=== PATIENT | female | born 1985 | race Caucasian/White ===

== ENCOUNTER → 2017-11-30 11:04 | Outpatient (CLI) | payer BC, SELFPAY ==
[2017-11-30 14:04] LABS: Absolute Lymphocyte Count 1.63 X10^3/ul (0.83-4.51); Absolute Neutrophil Count 6.7 X10^3/uL (2.0-7.7); Basophil# 0.02 X10^3/uL; Basophil% 0.2 % (0-1); Eosinophil# 0.01 X10^3/uL; Eosinophils% 0.1 % (0-5); Hematocrit 38.8 % (37-47); Hemoglobin 12.7 g/dl (12.0-15.0); Lymphocyte # 1.63 X10^3/ul (4.0); Lymphocyte % 18.7 % (19-41); Mean Corp Hgb Conc 32.7 g/gl (32-36); Mean Corpuscular Hgb 29.9 pg (27.0-32.0); Mean Corpuscular Volume 91.3 fL (81-99); Mean Platelet Vol. 10.2 fl (6.2-12.0); Monocyte# 0.36 X10^3/uL; Monocyte% 4.1 % (0-10); Neutrophil # 6.67 X10^3/uL (2.7-7.7); Neutrophil % 76.8 % (47-70); Platelet Count 268 K/mm3 (150-450); RBC Distribution Width CV 12.2 % (11.6-14.6); RBC Distribution Width SD 41.1 fl (35.1-43.9); Red Blood Count 4.25 M/mm3 (4.2-5.4); White Blood Count 8.7 K/mm3 (4.4-11.0)
[2017-11-30 14:06] LABS: POSITIVE COUNT NO; POSITIVE DIFFERENTIAL NO; POSITIVE MORPHOLOGY NO
[2017-11-30 14:15] LABS: Vitamin D,25 Hydroxy 13.6 ng/mL (29.95-100.01)
[2017-11-30 14:21] LABS: ALB/GLOB Ratio 1.1 RATIO (0.9-2.4); AST(SGOT) 11 U/L (15-37); Alanine Aminotransfer ALT/SGPT 17 U/L (13-56); Alkaline Phosphatase 43 U/L (45-117); Anion Gap 10 (5-15); BUN 9 mg/dL (7-18); BUN/Creat Ratio 11.7 RATIO (10-20); Calcium,Total 8.9 mg/dL (8.5-10.1); Chloride 107 mmol/L (98-107); Creatinine, Serum 0.77 mg/dL (0.55-1.02); EST Glomerular Filtration Rate 92 mL/min (>60); Est Glom Filt Rate - Afr Amer 112 mL/min (>60); Ferritin 21 ng/mL (8-252); Globulin 3.5 g/dL (2.2-4.2); Glucose 77 mg/dL (74-106); Potassium 3.5 mmol/L (3.5-5.1); Protein, Total 7.5 g/dL (6.4-8.2); Sodium Level 143 mmol/L (136-145); Thyroid Stim Hormone (TSH) 2.35 uIU/mL (0.358-3.74)
== END ==
PROVIDERS: Family Provider Family Medicine; PCP Family Medicine; Referring Provider Family Medicine; Visit Provider Family Medicine
DX: R53.81 Other malaise (principal); R53.83 Other fatigue
CPT/HCPCS: 36415; 80053; 82306; 82728; 84443; 85025

== ENCOUNTER → 2017-12-15 12:50 | Outpatient (CLI) | payer BC, SELFPAY ==
[2017-12-21 14:39] LABS: HPV Reflexed? NOT INDICATED
== END ==
PROVIDERS: Visit Provider Obstetrics & Gynecology
DX: Z12.4 Encounter for screening for malignant neoplasm of cervix (principal)
CPT/HCPCS: 88175; G0145

== ENCOUNTER → 2018-03-29 10:53 | Outpatient (CLI) | payer BC, SELFPAY ==
[2018-03-29 11:58] LABS: Absolute Lymphocyte Count 0.85 X10^3/ul (0.83-4.51); Absolute Neutrophil Count 4.1 X10^3/uL (2.0-7.7); Basophil# 0.01 X10^3/uL; Basophil% 0.2 % (0-1); Eosinophil# 0.01 X10^3/uL; Eosinophils% 0.2 % (0-5); Hematocrit 40.8 % (37-47); Hemoglobin 13.3 g/dl (12.0-15.0); Lymphocyte # 0.85 X10^3/ul (4.0); Lymphocyte % 15.2 % (19-41); Mean Corp Hgb Conc 32.6 g/gl (32-36); Mean Corpuscular Hgb 29.8 pg (27.0-32.0); Mean Corpuscular Volume 91.5 fL (81-99); Mean Platelet Vol. 10.2 fl (6.2-12.0); Monocyte# 0.65 X10^3/uL; Monocyte% 11.6 % (0-10); Neutrophil # 4.05 X10^3/uL (2.7-7.7); Neutrophil % 72.6 % (47-70); Platelet Count 230 K/mm3 (150-450); RBC Distribution Width CV 12.4 % (11.6-14.6); RBC Distribution Width SD 41.5 fl (35.1-43.9); Red Blood Count 4.46 M/mm3 (4.2-5.4); White Blood Count 5.6 K/mm3 (4.4-11.0)
[2018-03-29 12:01] LABS: POSITIVE COUNT NO; POSITIVE DIFFERENTIAL NO; POSITIVE MORPHOLOGY NO
[2018-03-29 12:11] LABS: Vitamin D,25 Hydroxy 24.9 ng/mL (29.95-100.01)
[2018-03-29 12:31] LABS: AST(SGOT) 15 U/L (15-37); Alanine Aminotransfer ALT/SGPT 16 U/L (13-56); Albumin, Serum 3.8 g/dL (3.2-5.0); Alkaline Phosphatase 45 U/L (45-117); Anion Gap 9 (5-15); BUN 8 mg/dL (7-18); BUN/Creat Ratio 11.3 RATIO (10-20); Calcium,Total 8.5 mg/dL (8.5-10.1); Chloride 105 mmol/L (98-107); Creatinine, Serum 0.71 mg/dL (0.55-1.02); EST Glomerular Filtration Rate 101 mL/min (>60); Est Glom Filt Rate - Afr Amer 122 mL/min (>60); Ferritin 66 ng/mL (8-252); Globulin 3.9 g/dL (2.2-4.2); Glucose 83 mg/dL (74-106); Potassium 3.3 mmol/L (3.5-5.1); Protein, Total 7.7 g/dL (6.4-8.2); Sodium Level 140 mmol/L (136-145); T4 Free Direct 1.11 ng/dL (0.76-1.46); Thyroid Stim Hormone (TSH) 4.38 uIU/mL (0.358-3.74)
== END ==
PROVIDERS: Family Provider Family Medicine; PCP Family Medicine; Referring Provider Family Medicine; Visit Provider Family Medicine
DX: R00.2 Palpitations (principal); E55.9 Vitamin D deficiency, unspecified; D50.8 Other iron deficiency anemias; E03.9 Hypothyroidism, unspecified
CPT/HCPCS: 36415; 80053; 82306; 82728; 83735; 84439; 84443; 85025

== ENCOUNTER → 2019-01-16 11:05 | Outpatient (CLI) | payer BC, SELFPAY ==
[2019-01-16 13:13] LABS: AST(SGOT) 15 U/L (15-37); Alanine Aminotransfer ALT/SGPT 21 U/L (13-56); Alkaline Phosphatase 62 U/L (45-117); Anion Gap 8 (5-15); BUN 9 mg/dL (7-18); BUN/Creat Ratio 10.8 RATIO (10-20); Calcium,Total 9.4 mg/dL (8.5-10.1); Chloride 104 mmol/L (98-107); Creatinine, Serum 0.84 mg/dL (0.55-1.02); EST Glomerular Filtration Rate 83 mL/min (>60); Est Glom Filt Rate - Afr Amer 100 mL/min (>60); Free T3 3.4 pg/mL (2.18-3.98); Glucose 92 mg/dL (74-106); Sodium Level 138 mmol/L (136-145); Thyroid Stim Hormone (TSH) 4.76 uIU/mL (0.358-3.74)
== END ==
PROVIDERS: Family Provider Family Medicine; PCP Family Medicine; Visit Provider Family Medicine
DX: E87.6 Hypokalemia (principal); E03.9 Hypothyroidism, unspecified
CPT/HCPCS: 36415; 80053; 83735; 84439; 84443; 84481

== ENCOUNTER → 2019-04-12 | Outpatient (CLI) | payer BC, SELFPAY ==
[2019-04-12 12:23] LABS: Absolute Lymphocyte Count 1.81 X10^3/uL (0.83-4.51); Absolute Neutrophil Count 5.6 X10^3/uL (2.0-7.7); Basophil# 0.04 X10^3/uL; Basophil% 0.5 % (0-1); Eosinophil# 0.03 X10^3/uL; Eosinophils% 0.4 % (0-5); Hematocrit 38.1 % (37-47); Hemoglobin 12.5 g/dL (12.0-15.0); Lymphocyte # 1.81 X10^3/ul (4.0); Mean Corp Hgb Conc 32.8 g/dL (32-36); Mean Corpuscular Volume 91.4 fL (81-99); Mean Platelet Vol. 10.4 fl (6.2-12.0); Monocyte# 0.41 X10^3/uL; Monocyte% 5.2 % (0-10); NRBC Flagged by Analyzer 0 % (0-5); Neutrophil # 5.56 X10^3/uL (2.7-7.7); Neutrophil % 70.6 % (47-70); Platelet Count 285 K/mm3 (150-450); RBC Distribution Width CV 11.6 % (11.6-14.6); Red Blood Count 4.17 M/mm3 (4.2-5.4); White Blood Count 7.9 K/mm3 (4.4-11.0)
[2019-04-12 13:04] LABS: ALB/GLOB Ratio 1.1 RATIO (0.9-2.4); AST(SGOT) 13 U/L (15-37); Alanine Aminotransfer ALT/SGPT 20 U/L (13-56); Albumin, Serum 3.8 g/dL (3.2-5.0); Alkaline Phosphatase 45 U/L (45-117); Anion Gap 5 (5-15); BUN 8 mg/dL (7-18); Calcium,Total 9.1 mg/dL (8.5-10.1); Chloride 109 mmol/L (98-107); EST Glomerular Filtration Rate 87 mL/min (>60); Est Glom Filt Rate - Afr Amer 105 mL/min (>60); Ferritin 32 ng/mL (8-252); Free T3 3.3 pg/mL (2.18-3.98); Globulin 3.5 g/dL (2.2-4.2); Glucose 91 mg/dL (74-106); Potassium 3.5 mmol/L (3.5-5.1); Protein, Total 7.3 g/dL (6.4-8.2); Sodium Level 140 mmol/L (136-145); T4 Free Direct 0.96 ng/dL (0.76-1.46); Thyroid Stim Hormone (TSH) 3.38 uIU/mL (0.358-3.74)
[2019-04-12 13:08] LABS: Vitamin D,25 Hydroxy 30.3 ng/mL (29.95-100.01)
== END | disposition home or self-care (01) ==
LOC: MFPLAB 10:13
PROVIDERS: PCP Family Medicine; Referring Provider Family Medicine; Visit Provider Family Medicine
DX: E55.9 Vitamin D deficiency, unspecified (principal); E61.1 Iron deficiency; R53.83 Other fatigue; R79.89 Other specified abnormal findings of blood chemistry; R78.89 Finding of other specified substances, not normally found in blood
CPT/HCPCS: 36415; 80053; 82306; 82728; 84439; 84443; 84481; 85025

== ENCOUNTER → 2020-05-01 | Outpatient (CLI) | payer BC, SELFPAY ==
[2020-05-08 11:55] LABS: HPV Reflexed? NOT INDICATED
== END | disposition home or self-care (01) ==
LOC: LABSPEC 15:17
PROVIDERS: PCP Family Medicine; Visit Provider Obstetrics & Gynecology
DX: Z12.4 Encounter for screening for malignant neoplasm of cervix (principal)
CPT/HCPCS: 88175; G0145

== ENCOUNTER → 2020-05-17 10:40 | Outpatient (CLI) | payer BC, SELFPAY ==
[2020-05-17 12:46] LABS: Cholesterol 265 mg/dL (200); Creatinine, Serum 0.83 mg/dL (0.55-1.02); EST Glomerular Filtration Rate 83 mL/min (>60); Est Glom Filt Rate - Afr Amer 100 mL/min (>60); High Density Lipoprotein 77 mg/dL; T4 Free Direct 0.93 ng/dL (0.76-1.46); Thyroid Stim Hormone (TSH) 3.53 uIU/mL (0.358-3.74); Triglycerides 215 mg/dL; Very Low Density Lipoprotein 43 mg/dL (5-40)
== END ==
PROVIDERS: PCP Family Medicine; Referring Provider Family Medicine; Visit Provider Family Medicine
DX: E03.9 Hypothyroidism, unspecified (principal); F98.8 Other specified behavioral and emotional disorders with onset usually occurring in childhood and adolescence; Z13.220 Encounter for screening for lipoid disorders
CPT/HCPCS: 36415; 80061; 82565; 84439; 84443

== ENCOUNTER → 2020-08-13 10:04 | Outpatient (CLI) | payer BC, SELFPAY ==
[2020-08-13 13:00] LABS: AST(SGOT) 16 U/L (15-37); Alanine Aminotransfer ALT/SGPT 17 U/L (13-56); Albumin, Serum 3.8 g/dL (3.2-5.0); Alkaline Phosphatase 59 U/L (45-117); Anion Gap 8 (5-15); BUN 8 mg/dL (7-18); BUN/Creat Ratio 10.1 RATIO (10-20); Calcium,Total 9.4 mg/dL (8.5-10.1); Chloride 108 mmol/L (98-107); EST Glomerular Filtration Rate 87 mL/min (>60); Est Glom Filt Rate - Afr Amer 105 mL/min (>60); Glucose 86 mg/dL (74-106); Protein, Total 7.8 g/dL (6.4-8.2); Sodium Level 141 mmol/L (136-145)
== END ==
PROVIDERS: PCP Family Medicine; Referring Provider Family Medicine; Visit Provider Family Medicine
DX: R00.2 Palpitations (principal)
CPT/HCPCS: 36415; 80053; 83735

== ENCOUNTER 2021-04-24 11:25 | Outpatient (CLI) | payer OTHER, SELFPAY ==
[2021-04-24 15:45] LABS: AST(SGOT) 20 U/L (15-37); Alanine Aminotransfer ALT/SGPT 23 U/L (13-56); Albumin, Serum 3.8 g/dL (3.2-5.0); Alkaline Phosphatase 57 U/L (45-117); Anion Gap 5 (5-15); BUN 11 mg/dL (7-18); BUN/Creat Ratio 15.6 RATIO (10-20); Calcium,Total 9.1 mg/dL (8.5-10.1); Chloride 107 mmol/L (98-107); Cholesterol 269 mg/dL (200); Creatinine, Serum 0.71 mg/dL (0.55-1.02); EST Glomerular Filtration Rate 99 mL/min (>60); Est Glom Filt Rate - Afr Amer 120 mL/min (>60); Globulin 3.9 g/dL (2.2-4.2); Glucose 81 mg/dL (74-106); High Density Lipoprotein 73 mg/dL; Magnesium 2.5 mg/dL (1.6-2.6); Protein, Total 7.7 g/dL (6.4-8.2); Sodium Level 138 mmol/L (136-145); T4 Free Direct 1.07 ng/dL (0.76-1.46); Thyroid Stim Hormone (TSH) 2.41 uIU/mL (0.358-3.74); Triglycerides 107 mg/dL; Very Low Density Lipoprotein 21 mg/dL (5-40)
== END 2021-04-24 23:59 | disposition home or self-care (01) ==
LOC: MFPLAB 11:26
PROVIDERS: PCP Family Medicine; Referring Provider Family Medicine; Visit Provider Family Medicine
DX: E78.2 Mixed hyperlipidemia (principal); E03.9 Hypothyroidism, unspecified; R00.2 Palpitations
CPT/HCPCS: 36415; 80053; 80061; 83735; 84439; 84443

== ENCOUNTER → 2021-08-20 | Outpatient (CLI) | payer OTHER, SELFPAY | END | disposition home or self-care (01) | LOC: LABSPEC 15:19 | PROVIDERS: Visit Provider Nurse Practitioner Family | DX: N39.0 Urinary tract infection, site not specified (principal) | CPT/HCPCS: 87077; 87086; 87088; 87186 ==

== ENCOUNTER → 2022-09-10 | Outpatient (CLI) | payer OTHER, SELFPAY ==
[2022-09-10 12:35] LABS: Absolute Lymphocyte Count 1.73 X10^3/uL (0.83-4.51); Absolute Neutrophil Count 7.4 X10^3/uL (2.0-7.7); Basophil# 0.05 X10^3/uL; Basophil% 0.5 % (0-1); Eosinophil# 0.03 X10^3/uL; Eosinophils% 0.3 % (0-5); Hematocrit 41.6 % (37-47); Hemoglobin 13.7 g/dL (12.0-15.0); Lymphocyte # 1.73 X10^3/ul (0.83-4.51); Lymphocyte % 17.9 % (19-41); Mean Corp Hgb Conc 32.9 g/dL (32-36); Mean Corpuscular Hgb 30.8 pg (27.0-32.0); Mean Corpuscular Volume 93.5 fL (81-99); Mean Platelet Vol. 9.8 fl (6.2-12.0); Monocyte# 0.45 X10^3/uL; Monocyte% 4.7 % (0-10); NRBC Flagged by Analyzer 0 % (0-5); Neutrophil # 7.37 X10^3/uL (2.7-7.7); Neutrophil % 76.2 % (47-70); Platelet Count 309 K/mm3 (150-450); RBC Distribution Width CV 11.7 % (11.6-14.6); RBC Distribution Width SD 39.9 fl (35.1-43.9); Red Blood Count 4.45 M/mm3 (4.2-5.4); White Blood Count 9.7 K/mm3 (4.4-11.0)
[2022-09-10 12:49] LABS: Amphetamine Urine VISTA NEGATIVE (<1000 ng/mL); Barbiturate Urine VISTA NEGATIVE (< 200 ng/mL); Benzodiazepine Urine VISTA NEGATIVE (< 200 ng/mL); Cocaine Urine VISTA NEGATIVE (< 300 ng/mL); Ecstacy Urine VISTA NEGATIVE (< 500 ng/mL); Methadone Urine VISTA NEGATIVE (< 300 ng/mL); PCP Urine VISTA NEGATIVE (< 25 ng/mL); THC Urine VISTA NEGATIVE (< 50 ng/mL); Vista UDS pH Range 5
[2022-09-10 13:40] LABS: ALB/GLOB Ratio 0.9 RATIO (0.9-2.4); AST(SGOT) 15 U/L (15-37); Alanine Aminotransfer ALT/SGPT 19 U/L (13-56); Albumin, Serum 3.6 g/dL (3.2-5.0); Alkaline Phosphatase 56 U/L (45-117); Anion Gap 5 (5-15); BUN 9 mg/dL (7-18); BUN/Creat Ratio 11.5 RATIO (10-20); Calcium,Total 9.1 mg/dL (8.5-10.1); Chloride 107 mmol/L (98-107); Cholesterol 283 mg/dL (200); Creatinine, Serum 0.78 mg/dL (0.55-1.02); EST Glomerular Filtration Rate 87 mL/min (>60); Est Glom Filt Rate - Afr Amer 106 mL/min (>60); Globulin 3.9 g/dL (2.2-4.2); Glucose 84 mg/dL (74-106); High Density Lipoprotein 94 mg/dL; Potassium 4.1 mmol/L (3.5-5.1); Protein, Total 7.5 g/dL (6.4-8.2); Sodium Level 139 mmol/L (136-145); Thyroid Stim Hormone (TSH) 4.07 uIU/mL (0.358-3.74); Triglycerides 108 mg/dL; Very Low Density Lipoprotein 22 mg/dL (5-40)
[2022-09-15 15:11] LABS: T4 Free Direct 0.88 ng/dL (0.76-1.46)
== END | disposition home or self-care (01) ==
LOC: MFPLAB 11:07
PROVIDERS: PCP Family Medicine; Visit Provider Family Medicine
DX: R00.2 Palpitations (principal); K58.9 Irritable bowel syndrome, unspecified; E78.00 Pure hypercholesterolemia, unspecified
CPT/HCPCS: 36415; 80053; 80061; 80307; 83735; 84439; 84443; 85025

== ENCOUNTER 2023-12-23 08:36 | Emergency (ER) | payer OTHER, SELFPAY ==
[2023-12-23 08:36] VITALS: BP 109/82; BP 111/91; PULSE 121; PULSE 126; RESP 18; TEMP 37.2; O2SAT 98; O2SAT 99; BMI 25.9
[2023-12-23 09:15] LABS: Absolute Lymphocyte Count 2.68 X10^3/uL (0.83-4.51); Absolute Neutrophil Count 11.1 X10^3/uL (2.0-7.7); Basophil# 0.08 X10^3/uL; Basophil% 0.5 % (0-1); Eosinophil# 0.54 X10^3/uL; Eosinophils% 3.4 % (0-5); Hematocrit 44.8 % (37-47); Hemoglobin 15.2 g/dL (12.0-15.0); Lymphocyte # 2.68 X10^3/ul (0.83-4.51); Mean Corp Hgb Conc 33.9 g/dL (32-36); Mean Corpuscular Hgb 30.3 pg (27.0-32.0); Mean Corpuscular Volume 89.2 fL (81-99); Mean Platelet Vol. 9.8 fl (6.2-12.0); Monocyte# 1.32 X10^3/uL; Monocyte% 8.4 % (0-10); NRBC Flagged by Analyzer 0 % (0-5); Neutrophil # 11.07 X10^3/uL (2.7-7.7); Neutrophil % 70.1 % (47-70); Platelet Count 494 K/mm3 (150-450); RBC Distribution Width CV 12.8 % (11.6-14.6); RBC Distribution Width SD 39.8 fl (35.1-43.9); Red Blood Count 5.02 M/mm3 (4.2-5.4); White Blood Count 15.8 K/mm3 (4.4-11.0)
[2023-12-23 09:25] LABS: Internal QC Validated? YES +Cl - CLEAR BKGD; Pregnancy, Serum, hCG Quali. NEGATIVE Negative
[2023-12-23] MEDS: 0.9% Normal Saline (1000mL) 1,000 ML 999 ML IV ×2 (09:32→11:34)
[2023-12-23] MEDS: Ondansetron 4 MG/2 ML Vial IV (09:33)
[2023-12-23 09:56] LABS: ALB/GLOB Ratio 0.9 RATIO (0.9-2.4); AST(SGOT) 32 U/L (15-37); Alanine Aminotransfer ALT/SGPT 41 U/L (13-56); Albumin, Serum 3.5 g/dL (3.2-5.0); Alkaline Phosphatase 75 U/L (45-117); Anion Gap 10 (5-15); BUN 11 mg/dL (7-18); Calcium,Total 9.2 mg/dL (8.5-10.1); Chloride 104 mmol/L (98-107); Creatinine, Serum 0.91 mg/dL (0.55-1.02); EST Glomerular Filtration Rate 73 mL/min (>60); Est Glom Filt Rate - Afr Amer 88 mL/min (>60); Globulin 3.8 g/dL (2.2-4.2); Glucose 106 mg/dL (74-106); Potassium 3.3 mmol/L (3.5-5.1); Protein, Total 7.3 g/dL (6.4-8.2); Sodium Level 137 mmol/L (136-145)
[2023-12-23 10:10] LABS: AST(SGOT) 35 U/L (15-37); Alanine Aminotransfer ALT/SGPT 38 U/L (13-56); Albumin, Serum 3.5 g/dL (3.2-5.0); Alkaline Phosphatase 75 U/L (45-117); Bilirubin, Direct 0.19 mg/dL (0.00-0.30); Globulin 3.9 g/dL (2.2-4.2); Lipase 45 U/L (13-75); Protein, Total 7.4 g/dL (6.4-8.2)
--- NOTE | 2023-12-23 10:33 | CT_ITS ---
STUDY: CT ABDOMEN AND PELVIS WITH CONTRAST REASON FOR EXAM: Female, 38 years old. Vomiting and abdominal pain RADIATION DOSAGE (If Supplied By Facility): CTDIvol = ( 11.69 ) mGy, DLP = ( 672.31 ) mGycm TECHNIQUE: Transaxial images were obtained from the dome of the diaphragm to the symphysis pubis without oral contrast. IV 100mL Isovue-300 was administered. Sagittal and coronal images were reconstructed. Individualized dose optimization techniques were used for this CT. COMPARISON: None. FINDINGS: There is a focal infiltrate in the posterior medial segment of the left lower lobe. Radiographic follow-up recommended. The visualized portions of the heart are within normal limits. Normal liver. Normal gallbladder and extrahepatic biliary system. Normal spleen. Normal pancreas. Normal bilateral adrenal glands. Normal right kidney. Normal left kidney. Normal visualized stomach. There is evidence of a edematous changes of the distal jejunal and ileal loops of the small bowel. Enteritis should be ruled out. Increased markings are seen in the surrounding peritoneal fat. Normal colon. The appendix is visualized and appears normal. Normal abdominal aorta. Normal inferior vena cava. Normal retroperitoneum. Normal urinary bladder. Normal abdominal wall. Normal osseous structures. CT/Abdomen/Pelvis W IV Cont ONLY IMPRESSION: Findings suggestive of a small bowel enteritis as described. The appendix is visualized and is unremarkable. Electronically Signed: Jerry Byrd MD at 10:59 EDT ,
[2023-12-23 11:06] VITALS: BP 127/73; PULSE 78; RESP 16; O2SAT 99
[2023-12-23 11:09] LABS: Color, Urine Yellow (Yellow); Glucose, Dipstick Normal (Normal); Leukocyte Esterase-Dipstick 25 /ul (Negative); Nitrite-Dipstick Positive (Negative); Occult Blood-Urine 50 /ul (Negative); Protein-Dipstick 30 mg/dl (Negative); Urine Bilirubin Dipstick Negative (Negative); Urine Clarity Sl. Cloudy (Clear); Urine Urobilinogen 1 mg/dl (Normal); Urine pH 6.5 (5.0 - 8.0)
[2023-12-23 11:12] LABS: Ketone-Dipstick 150 mg/dl (Negative)
[2023-12-23 11:14] LABS: Squamous Epithelial Cells - UA 0-5 SEEN /hpf (5-10)
[2023-12-23 11:15] LABS: Bacteria 1+ /hpf (None Seen); Mucous, Urine 1+ /hpf (<or=2+); Red Blood Cells-Urine 0-5 SEEN /hpf (0-5); White Blood Cells 0-5 SEEN /hpf (0-5)
[2023-12-23 13:00] VITALS: BP 125/80; PULSE 94; RESP 16
--- NOTE | 2023-12-23 13:07 | EDS_ITS ---
HPI HPI - GI History of Present Illness Chief Complaint: Abd Pain Informant: patient Narrative Narrative: 38-year-old female presenting to the emergency room out of concerns for dehydration associated with vomiting and diarrhea. Symptoms have been present over the past several days. No reported fever. She noted that there was some pink/red material in some of the emesis. She notes her mouth feels dry. She denies any urinary symptoms. She does not recall any bad food exposure. No one else sick with symptoms. PFSH PFSH Medical History no medical history Home Medications ?Medication ?Instructions ?Recorded ?Last Taken ?Type nitrofurantoin 100 mg PO Q12 #10 CAPSULES 12/23/23 Unknown Rx monohydrate/macrocrystals 100 mg capsule ondansetron 4 mg disintegrating 4 mg PO Q6H PRN PRN Nausea #15 tabs 12/23/23 Unknown Rx tablet Allergy/AdvReac Type Severity Reaction Status Date / Time No Known Allergies Allergy Verified 12/23/23 08:37 Surgical History no surgical history Social History Smoking Status: Former smoker ROS ROS ED Constitutional Constitutional ED: Denies chills, fever(s) or weight loss Eyes Eyes: Denies change in vision or diplopia ENT ENT ED: Reports other Details: Dry mouth ; Denies ear pain, rhinorrhea or sore throat Cardiovascular Cardiovascular: Denies chest pain, orthopnea, palpitations or racing heartbeat Respiratory/Chest Respiratory/Chest: Denies cough, dyspnea or orthopnea Gastrointestinal Gastrointestinal: Reports abdominal pain, diarrhea, nausea and vomiting Genitourinary Genitourinary ED: Denies dysuria, hematuria or urinary frequency Musculoskeletal Musculoskeletal: Denies arthralgias or myalgias Integumentary Denies abscess or rash Neurologic Neurologic: Denies headache(s) or weakness Psychiatric Psychiatric: Denies anxiety, depression, suicidal ideation or suicidal thoughts Endocrine Endocrinology: Denies polydipsia, polyphagia or polyuria Allergic/Immunologic Allergic/Immunologic ED: Denies mouth swelling, tongue swelling or urticaria EXAM Physical Exam Const Vital Signs: 12/23/23 08:36 12/23/23 08:36 12/23/23 11:06 Temperature 99 F Temperature Source Temporal Pulse Rate 126 H 121 H 78 Respiratory Rate 18 18 16 Blood Pressure 109/82 H 111/91 H 127/73 H Blood Pressure Mean 91 97 91 Pulse Ox 99 98 99 Oxygen Delivery Method Room Air Room Air Room Air 12/23/23 13:00 12/23/23 13:50 Temperature 97.8 F Temperature Source Pulse Rate 94 78 Respiratory Rate 16 16 Blood Pressure 125/80 H 132/87 H Blood Pressure Mean 95 102 Pulse Ox 100 Oxygen Delivery Method Positive well nourished and well developed General Appearance ED: well developed HEENT Reports normocephalic, head/scalp atraumatic and dry mucous membranes Mouth ED: Yes dry mucous membranes Mouth: dry mucous membranes Eyes PERRL and EOMs intact bilaterally Neck no lymphadenopathy, supple and no JVD Resp normal respiratory effort and clear to auscultation bilaterally Cardio regular rate, regular rhythm and no murmurs Rate: tachycardic GI non-tender Inspection: Negative for abdominal distention Auscultation: hyperactive bowel sounds Palpation: soft; Negative for tender Back/Spine no CVA tenderness and normal ROM Extremity normal to inspection General Extremety ED: Negative for edema General Extremity: Negative for edema Neuro oriented x3 and CN's II-XII intact bilaterally Sensorium / Orientation: alert Motor Exam: strength 5/5 throughout Psych mental status grossly normal Mood & Affect: Negative for depressed or tearful Skin no rashes or lesions noted and no wounds MDM MDM MDM Narrative Medical decision making narrative: Differential diagnosis includes but not limited to gastroenteritis colitis diverticulitis dehydration electrolyte abnormalities White count returns at 15.8 potassium 3.3 sodium 137 hemoglobin 15.2 the patient's liver enzymes are within normal limits. Urinalysis positive for ketones positive for nitrates 0-5 white cells 0-5 red cells 1+ bacteria. She does not have any UTI symptomology. I went to be writing for her to have an antibiotic in case she would get some symptoms which she states she has experienced before. She received IV fluids as well as Zofran. Heart rate is improved. She is tolerating p.o. fluids things reasonable discharge the patient home with some Zofran. I believe this to be gastroenteritis and would also benefit from some Imodium as needed. Patient understands the plan is comfortable with it History & Record Review Discussion w/independent historian: Patient and Family Lab Data Attestation: I reviewed the patient's lab results. Labs: Laboratory Results - last 24 hr 12/23/23 12/23/23 12/23/23 08:55 08:55 08:55 WBC 15.8 H RBC 5.02 Hgb 15.2 H Hct 44.8 MCV 89.2 MCH 30.3 MCHC 33.9 RDW Std Deviation 39.8 RDW Coeff of Romain 12.8 Plt Count 494 H MPV 9.8 Immature Gran % (Auto) 0.600 Neut % (Auto) 70.1 H Lymph % (Auto) 17.0 L [place] % (Auto) 8.4 Eos % (Auto) 3.4 Baso % (Auto) 0.5 Absolute Neuts (auto) 11.1 H Absolute Lymphs (auto) 2.68 Nucleated RBC % 0 Sodium 137 Cancelled Potassium 3.3 L Cancelled Chloride 104 Carbon Dioxide Anion Gap BUN Creatinine Estim Creat Clear Calc Est GFR (MDRD) Af Amer Est GFR (MDRD) Non-Af BUN/Creatinine Ratio Glucose Calcium Total Bilirubin Direct Bilirubin AST ALT Alkaline Phosphatase Total Protein Albumin Globulin Albumin/Globulin Ratio Lipase Serum , Qual Urine Color Urine Clarity Urine pH Ur Specific [place] Urine Protein Urine Glucose (UA) Urine Ketones Urine Occult Blood Urine Nitrite Urine Bilirubin Urine Urobilinogen Ur Leukocyte Esterase Urine RBC Urine WBC Ur Squamous Epith Cells Urine Bacteria Urine Mucus 12/23/23 12/23/23 12/23/23 08:55 08:55 08:55 WBC RBC Hgb Hct MCV MCH MCHC RDW Std Deviation RDW Coeff of Romain Plt Count MPV Immature Gran % (Auto) Neut % (Auto) Lymph % (Auto) [place] % (Auto) Eos % (Auto) Baso % (Auto) Absolute Neuts (auto) Absolute Lymphs (auto) Nucleated RBC % Sodium Potassium Chloride Cancelled Carbon Dioxide 23.0 Cancelled Anion Gap 10 Cancelled BUN 11 Creatinine Estim Creat Clear Calc Est GFR (MDRD) Af Amer Est GFR (MDRD) Non-Af BUN/Creatinine Ratio Glucose Calcium Total Bilirubin Direct Bilirubin AST ALT Alkaline Phosphatase Total Protein Albumin Globulin Albumin/Globulin Ratio Lipase Serum , Qual Urine Color Urine Clarity Urine pH Ur Specific [place] Urine Protein Urine Glucose (UA) Urine Ketones Urine Occult Blood Urine Nitrite Urine Bilirubin Urine Urobilinogen Ur Leukocyte Esterase Urine RBC Urine WBC Ur Squamous Epith Cells Urine Bacteria Urine Mucus 12/23/23 12/23/23 12/23/23 08:55 08:55 08:55 WBC RBC Hgb Hct MCV MCH MCHC RDW Std Deviation RDW Coeff of Romain Plt Count MPV Immature Gran % (Auto) Neut % (Auto) Lymph % (Auto) [place] % (Auto) Eos % (Auto) Baso % (Auto) Absolute Neuts (auto) Absolute Lymphs (auto) Nucleated RBC % Sodium Potassium Chloride Carbon Dioxide Anion Gap BUN Cancelled Creatinine 0.91 Cancelled Estim Creat Clear Calc 94.80 Est GFR (MDRD) Af Amer 88 Cancelled Est GFR (MDRD) Non-Af 73 BUN/Creatinine Ratio Glucose Calcium Total Bilirubin Direct Bilirubin AST ALT Alkaline Phosphatase Total Protein Albumin Globulin Albumin/Globulin Ratio Lipase Serum , Qual Urine Color Urine Clarity Urine pH Ur Specific [place] Urine Protein Urine Glucose (UA) Urine Ketones Urine Occult Blood Urine Nitrite Urine Bilirubin Urine Urobilinogen Ur Leukocyte Esterase Urine RBC Urine WBC Ur Squamous Epith Cells Urine Bacteria Urine Mucus 12/23/23 12/23/23 12/23/23 08:55 08:55 08:55 WBC RBC Hgb Hct MCV MCH MCHC RDW Std Deviation RDW Coeff of Romain Plt Count MPV Immature Gran % (Auto) Neut % (Auto) Lymph % (Auto) [place] % (Auto) Eos % (Auto) Baso % (Auto) Absolute Neuts (auto) Absolute Lymphs (auto) Nucleated RBC % Sodium Potassium Chloride Carbon Dioxide Anion Gap BUN Creatinine Estim Creat Clear Calc Est GFR (MDRD) Af Amer Est GFR (MDRD) Non-Af Cancelled BUN/Creatinine Ratio 12.0 Cancelled Glucose 106 Cancelled Calcium 9.2 Total Bilirubin Direct Bilirubin AST ALT Alkaline Phosphatase Total Protein Albumin Globulin Albumin/Globulin Ratio Lipase Serum , Qual Urine Color Urine Clarity Urine pH Ur Specific [place] Urine Protein Urine Glucose (UA) Urine Ketones Urine Occult Blood Urine Nitrite Urine Bilirubin Urine Urobilinogen Ur Leukocyte Esterase Urine RBC Urine WBC Ur Squamous Epith Cells Urine Bacteria Urine Mucus 12/23/23 12/23/23 12/23/23 08:55 08:55 08:55 WBC RBC Hgb Hct MCV MCH MCHC RDW Std Deviation RDW Coeff of Romain Plt Count MPV Immature Gran % (Auto) Neut % (Auto) Lymph % (Auto) [place] % (Auto) Eos % (Auto) Baso % (Auto) Absolute Neuts (auto) Absolute Lymphs (auto) Nucleated RBC % Sodium Potassium Chloride Carbon Dioxide Anion Gap BUN Creatinine Estim Creat Clear Calc Est GFR (MDRD) Af Amer Est GFR (MDRD) Non-Af BUN/Creatinine Ratio Glucose Calcium Cancelled Total Bilirubin 0.90 0.90 Direct Bilirubin 0.19 AST 32 35 ALT 41 Alkaline Phosphatase Total Protein Albumin Globulin Albumin/Globulin Ratio Lipase Serum , Qual Urine Color Urine Clarity Urine pH Ur Specific [place] Urine Protein Urine Glucose (UA) Urine Ketones Urine Occult Blood Urine Nitrite Urine Bilirubin Urine Urobilinogen Ur Leukocyte Esterase Urine RBC Urine WBC Ur Squamous Epith Cells Urine Bacteria Urine Mucus 12/23/23 12/23/23 12/23/23 08:55 08:55 08:55 WBC RBC Hgb Hct MCV MCH MCHC RDW Std Deviation RDW Coeff of Romain Plt Count MPV Immature Gran % (Auto) Neut % (Auto) Lymph % (Auto) [place] % (Auto) Eos % (Auto) Baso % (Auto) Absolute Neuts (auto) Absolute Lymphs (auto) Nucleated RBC % Sodium Potassium Chloride Carbon Dioxide Anion Gap BUN Creatinine Estim Creat Clear Calc Est GFR (MDRD) Af Amer Est GFR (MDRD) Non-Af BUN/Creatinine Ratio Glucose Calcium Total Bilirubin Direct Bilirubin AST ALT 38 Alkaline Phosphatase 75 75 Total Protein 7.3 7.4 Albumin 3.5 Globulin Albumin/Globulin Ratio Lipase Serum , Qual Urine Color Urine Clarity Urine pH Ur Specific [place] Urine Protein Urine Glucose (UA) Urine Ketones Urine Occult Blood Urine Nitrite Urine Bilirubin Urine Urobilinogen Ur Leukocyte Esterase Urine RBC Urine WBC Ur Squamous Epith Cells Urine Bacteria Urine Mucus 12/23/23 12/23/23 12/23/23 08:55 08:55 11:00 WBC RBC Hgb Hct MCV MCH MCHC RDW Std Deviation RDW Coeff of Romain Plt Count MPV Immature Gran % (Auto) Neut % (Auto) Lymph % (Auto) [place] % (Auto) Eos % (Auto) Baso % (Auto) Absolute Neuts (auto) Absolute Lymphs (auto) Nucleated RBC % Sodium Potassium Chloride Carbon Dioxide Anion Gap BUN Creatinine Estim Creat Clear Calc Est GFR (MDRD) Af Amer Est GFR (MDRD) Non-Af BUN/Creatinine Ratio Glucose Calcium Total Bilirubin Direct Bilirubin AST ALT Alkaline Phosphatase Total Protein Albumin 3.5 Globulin 3.8 3.9 Albumin/Globulin Ratio 0.9 Lipase 45 Serum , Qual NEGATIVE Urine Color Yellow Urine Clarity Sl. Cloudy Urine pH 6.5 Ur Specific [place] 1.010 Urine Protein 30 H Urine Glucose (UA) Normal Urine Ketones 150 A* Urine Occult Blood 50 H Urine Nitrite Positive H Urine Bilirubin Negative Urine Urobilinogen 1 H Ur Leukocyte Esterase 25 H Urine RBC 0-5 SEEN Urine WBC 0-5 SEEN Ur Squamous Epith Cells 0-5 SEEN Urine Bacteria 1+ Urine Mucus 1+ Radiography Diagnostic Testing: Clinical Impression(s) from Imaging Studies Abdomen/Pelvis CT 12/23/23 10:33 IMPRESSION: Findings suggestive of a small bowel enteritis as described. The appendix is visualized and is unremarkable. Electronically Signed: Jerry Byrd MD at 10:59 EDT , Discharge Plan Triage Chief Complaint: Abd Pain ED Provider: Tres Diaz Dx/Rx/DC Orders Clinical Impression: Gastroenteritis, Acute dehydration Instructions: Dehydration, ED Gastroenteritis, Viral (Adult) Prescriptions: New ondansetron 4 mg tablet,disintegrating 4 mg PO Q6H PRN PRN (Reason: Nausea) Qty: 15 0RF nitrofurantoin monohyd/m-cryst 100 mg capsule 100 mg PO Q12 Qty: 10 0RF Primary Care Provider: Dino Lucero Referrals: Dino Lucero MD [Primary Care Provider] - As Needed Activity Restrictions/Additional Instructions: Should you develop any of the signs or symptoms of urinary tract infection like we discussed hide recommend taking the antibiotic that I have provided you. I have sent some nausea medication to your pharmacy. This has a side effect of potentially causing some constipation which may be of benefit to you. Print Language: Mauritian Disposition Disposition: Home, Self Care Discharge Date/Time: 12/23/23 13:51
[2023-12-23 13:50] VITALS: BP 132/87; PULSE 78; RESP 16; TEMP 36.6; O2SAT 100
== END 2023-12-23 13:51 | disposition home or self-care (01) ==
PROVIDERS: Emergency Provider Emergency Medicine; PCP Family Medicine; Visit Provider Emergency Medicine
DX: K52.9 Noninfective gastroenteritis and colitis, unspecified (principal); Z87.891 Personal history of nicotine dependence; E86.0 Dehydration
CPT/HCPCS: 74177; 80053; 80076; 81001; 83690; 84703; 85025; 96361; 96374; 99283; J7030; Q9967; A4216; J2405

== ENCOUNTER → 2024-06-16 | Outpatient (CLI) | payer SELFPAY ==
[2024-06-16 16:15] LABS: Creatinine, Serum 0.82 mg/dL (0.70-1.20); EST Glomerular Filtration Rate 93 (>60)
== END | disposition home or self-care (01) ==
LOC: MFPLAB 11:53
PROVIDERS: PCP Family Medicine; Referring Provider Family Medicine; Visit Provider Family Medicine
DX: E03.9 Hypothyroidism, unspecified (principal); F98.8 Other specified behavioral and emotional disorders with onset usually occurring in childhood and adolescence
CPT/HCPCS: 36415; 82565; 84443

== ENCOUNTER → 2024-12-13 | Outpatient (CLI) | payer SELFPAY ==
[2024-12-13 18:12] LABS: Hematocrit 38.9 % (37-47); Hemoglobin 13.3 g/dL (12.0-15.0)
[2024-12-13 18:47] LABS: AST(SGOT) 30 U/L (<=31); Alanine Aminotransfer ALT/SGPT 31 U/L (<=34); Albumin, Serum 4.5 g/dL (3.5-5.0); Alkaline Phosphatase 55 U/L (35-104); Anion Gap 13 (5-15); BUN 10 mg/dL (4-19); BUN/Creat Ratio 13.1 RATIO (10-20); Calcium,Total 9.8 mg/dL (7.6-11.0); Carbon Dioxide 23.0 mmol/L (21.0-32.0); Chloride 103 mmol/L (98-108); Globulin 2.8 g/dL (2.2-4.2); Glucose 88 mg/dL (70-99); Potassium 3.7 mmol/L (3.3-5.1); Syphilis Antibodies Nonreactive (Nonreactive)
[2024-12-13 19:04] LABS: Vitamin B12 472 pg/mL (180-914)
[2024-12-18 07:30] LABS: Follicle Stimulating Hormone 9.1 mIU/mL
== END | disposition home or self-care (01) ==
LOC: MFPLAB 15:05
PROVIDERS: PCP Family Medicine; Visit Provider Family Medicine
DX: R68.82 Decreased libido (principal)
CPT/HCPCS: 36415; 80053; 82607; 82670; 83001; 83002; 84403; 84443; 85014; 85018; 86780